=== PATIENT | female | born 1980 | race Caucasian/White ===

== ENCOUNTER 2016-11-18 12:20 | Emergency (ER) | payer OTHER ==
--- NOTE | ~2016-11-18 | CR210 ---
[facility] A Service of [facility] RADIOLOGY TEXT RESULTS PATIENT: BRADLEY ZAVALETA LOCATION: SED : 76 UNIT #: [id number] AGE: [address]: Kandace Valentino APRN SEX: F ORDER DR: [id number] [address] [address] [id number] E MR#: [id number] #: [id number] NAME: BRADLEY ZAVALETA : 1980 SEX: F STUDY DATE/TIME: 11/18/2016 13:29 UNIT: SED ROOM: STUDY DESCRIPTION: CR Ribs Uni 2 View W PA Ch Lt Attending Physician: Kandace Valentino A.P.R.N. Ordering Physician: Kandace Balbuena A.P.R.N. Primary Care Physician: Primary Care Physician No MEDICAL IMAGING REPORT This report is preliminary unless electronic signature is present. EXAM Frontal view of the chest and left-sided rib views dated 11/18/2016 COMPARISON Frontal view of the chest and left rib views dated 07/27/2016 HISTORY Left-sided rib pain started on Saturday when patient lifted something and probably pulled a muscle. FINDINGS Frontal view of the chest was obtained. Lungs are well-aerated. Heart, mediastinum and bones are unremarkable. 3 left-sided rib views were obtained. There are some calcifications and irregularity noted in the costochondral junction along the anterior edge of the left lower ribs. No obvious acute displaced fracture or destructive bony mass is noted in the posterior or lateral aspect of the left sided ribs. Lungs are well-aerated. Heart, mediastinum and the spine are within normal limits. Evidence of surgery in the right paraspinal upper to mid abdomen suggestive of cholecystectomy. Dictated by... Milly Gupta M.D. THIS IS AN ELECTRONICALLY VERIFIED REPORT Milly Gupta M.D. at 11/19/2016 3:23 PM CPR/ted TD: 11/18/2016 15:11 JOB #: [id number] MEDICAL IMAGING REPORT [facility] A Service of [facility] RADIOLOGY TEXT RESULTS PATIENT: BRADLEY ZAVALETA [place] [facility] [place] 76 UNIT #: [id number] AGE: [address]: Kandace Valentino APRN SEX: F ORDER DR: Page 1 of 1
[~2016-11-18 12:20] MED LIST: ADVAIR 100-501 EACH IH; ALBUTEROL17 GM INH; AMITRYPTYLINE PO; AMOXICILLIN; CHANTIX PO; CLONIDINE HCL0.1 MG PO; CLONIDINE PO; CORGARD20 MG PO; DEXADRINE PO; DEXEDRINE5 M1 PO; DICLOFENAC PO; DOXYCYCLINE HY100 M1 PO; ESTRADIOL1 MG PO; FLEXERIL PO; FLEXERIL10 M1; FLEXERIL10 MG PO; FLONASE16 GM; FLUVOXAMINE MA100 MG PO; HYCODAN SYRUP PO; IBUPROFEN; IMITREX PO; KLONOPIN; LAMICTAL PO; LORTAB 5/500 TA1 TA1 PO; LORTAB 7.51 TAB 7.5/ PO; MINIPRESS PO; MIRALAX255 GM PO; MOBIC PO; MUCINEX DM1 TAB.SR . PO; NAPROSYN500 MG PO; NEURONTIN PO; NORCO 7.5MG/325MG PO; ORTHO TRI-7 DAYS X PO; PHENERGAN DM1 ML PO; PHENERGAN PO; PHENERGAN25 M1 PO; PRAVACHOL80 MG PO; PRAVASTATIN SOD20 MG PO; PRAVASTATIN SOD40 MG PO; PRAZOSIN HCL5 MG PO; PREDNISONE PO; PREDNISONE10 MG PO; PREMARIN0.625 MG PO; PREMARIN0.9 MG PO; PROMETHAZINE-D240 ML PO; PROVENTIL0.83 MG/ML IH; PROZAC; PYRIDIUM PO; RANITIDINE HCL150 M1 PO; REMERON PO; REMERON30 MG PO; RESPERIDAL; RISPERDAL1 M1 PO; ROBAXIN PO; ROBITUSSIN A-C S5 ML PO; RONDEC-DM SYRU120 ML PO; SENNA8.6 M2 PO; SEROQUEL PO; SEROQUEL300 MG PO; TIGAN300 MG PO; TOPAMAX PO; TRAZODONE PO; TRIAMTERENE-HC1 EACH PO; TYLENOL #3 PO; ULTRAM PO; VENTOLIN5 MG/ML INH; VERAMYST10 GM NS; VIBRAMYCIN100 M1 PO; VISTARIL50 MG PO; VOLTAREN50 MG PO; ZANAFLEX2 M1 PO; ZANAFLEX4 M1 PO; ZANTAC PO; ZITHROMAX PO; ZITHROMAX1 G/PKT PO; [UNRECOGNIZED DRUG - OTHER] PO
== END 2016-11-18 14:16 | disposition home or self-care (01) ==
LOC: SED 12:20
DX: S29.011A Strain of muscle and tendon of front wall of thorax, initial encounter (principal); K21.9 Gastro-esophageal reflux disease without esophagitis; F31.9 Bipolar disorder, unspecified; F98.8 Other specified behavioral and emotional disorders with onset usually occurring in childhood and adolescence; F41.9 Anxiety disorder, unspecified; J45.909 Unspecified asthma, uncomplicated; Z88.6 Allergy status to analgesic agent; Z79.899 Other long term (current) drug therapy; Z88.8 Allergy status to other drugs, medicaments and biological substances; Z90.49 Acquired absence of other specified parts of digestive tract; Z98.890 Other specified postprocedural states; X58.XXXA Exposure to other specified factors, initial encounter; Y93.89 Activity, other specified; Y92.009 Unspecified place in unspecified non-institutional (private) residence as the place of occurrence of the external cause
CPT/HCPCS: 71100; 99283

== ENCOUNTER 2016-12-08 15:34 | Emergency (ER) | payer OTHER | END 2016-12-08 21:00 | disposition left against medical advice (07) | LOC: CED 15:34 → CFTX 15:34 → CED 20:57 | DX: Z53.21 Procedure and treatment not carried out due to patient leaving prior to being seen by health care provider (principal) ==

== ENCOUNTER 2016-12-09 12:45 | Emergency (ER) | payer OTHER ==
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
== END 2016-12-09 18:29 | disposition home or self-care (01) ==
LOC: CED 12:45
DX: S09.90XA Unspecified injury of head, initial encounter (principal); S00.03XA Contusion of scalp, initial encounter; F17.200 Nicotine dependence, unspecified, uncomplicated; Z88.5 Allergy status to narcotic agent; Z91.048 Other nonmedicinal substance allergy status; Y04.0XXA Assault by unarmed brawl or fight, initial encounter
CPT/HCPCS: 70450; 99283; 99284